=== PATIENT | female | born 1960 | race African-American/Black ===

== ENCOUNTER 2018-06-06 21:39 | Emergency (ER) | payer BC ==
[~2018-06-06] VITALS: Ht 167.6 cm; Wt 90.0 kg
[2018-06-06] MEDS ORDERED: ASPI-1159 PO (23:06)
[2018-06-06] MEDS ORDERED: CLON0.1T PO (23:06)
[2018-06-06] MEDS ORDERED: CARV25TA47 MT (23:06)
[2018-06-06] MEDS ORDERED: AMLO5TAB88 PO (23:06)
[2018-06-06] MEDS ORDERED: ATOR-2 PO (23:06)
[2018-06-06] MEDS ORDERED: INSU100I28 SQ (23:06)
[2018-06-06] MEDS ORDERED: CITA10SO PO (23:06)
[2018-06-06] MEDS ORDERED: HYDR100T26 MT (23:06)
[2018-06-06] MEDS ORDERED: SODIUM CHLORIDE 0.9% 1,000 ML IV ONE (23:13)
[2018-06-06 23:54] LABS: BASOPHILS % 0.4 % (0.0-2.0); EOSINOPHILS % 0.9 % (0.0-5.0); HEMATOCRIT. 38.2 % (36.0-48.0); HEMOGLOBIN. 12.7 g/dL (12.0-16.0); MEAN CORPUSCULAR HEMOGLOBIN 25.7 pg (28.0-32.0); MEAN CORPUSCULAR VOLUME 77.4 fL (81.0-99.0); MEAN PLATELET VOLUME 9.5 fl (7.4-10.4); NEUTROPHILS % 43.7 % (40.0-76.0); PLATELET 167 x1000/uL (130-400); RED BLOOD CELL COUNT 4.93 mill/uL (4.2-5.4)
[2018-06-07 00:14] LABS: CHLORIDE 105 mEq/L (98-107)
[2018-06-07 01:31] LABS: CLARITY URINE CLEAR (CLEAR); COLOR URINE YELLOW (YELLOW); KETONES URINE NEGATIVE (NEGATIVE); LEUKOCYTE ESTERASE URINE NEGATIVE (NEGATIVE); NITRITE URINE NEGATIVE (NEGATIVE); OCCULT BLOOD URINE NEGATIVE (NEGATIVE); PH URINE 7.5 (4.5-8.0); PROTEIN URINE 2+ (NEGATIVE); SPECIFIC GRAVITY URINE 1.013 (1.005-1.030); UROBILINOGEN URINE 0.2 E.U./dL (0.2-1.0)
[2018-06-07] MEDS ORDERED: CLONIDINE 0.2MG TABLET PO ONE (03:45)
[2018-06-07 05:08] VITALS: BP 167/77
== END 2018-06-07 05:10 | disposition home or self-care (01) ==
LOC: ER 21:54 → EDBD 21:54 → ER 06-07 05:10
DX: E86.0 Dehydration (principal); I10 Essential (primary) hypertension; E11.9 Type 2 diabetes mellitus without complications; E78.00 Pure hypercholesterolemia, unspecified; Z86.73 Personal history of transient ischemic attack (TIA), and cerebral infarction without residual deficits; Z79.84 Long term (current) use of oral hypoglycemic drugs; Z79.4 Long term (current) use of insulin; Z79.899 Other long term (current) drug therapy
CPT/HCPCS: 36415; 70450; 71045; 80053; 81003; 83605; 84484; 85025; 93005; 96360; 96361; 99285; J7030

== ENCOUNTER 2018-06-07 16:05 | Inpatient (IN) | payer BC ==
[~2018-06-07] VITALS: Ht 172.7 cm; Wt 77.6 kg
[~2018-06-07 16:05] MED LIST: AMLO5TAB88 PO; ASPI-1159 PO; ATOR-2 PO; CARV25TA47 MT; CITA10SO PO; CLON0.1T PO; HYDR100T26 MT; INSU100I28 SQ
[2018-06-07 17:23] LABS: BASOPHILS % 0.4 % (0.0-2.0); EOSINOPHILS % 0.5 % (0.0-5.0); HEMATOCRIT. 40.3 % (36.0-48.0); HEMOGLOBIN. 13.6 g/dL (12.0-16.0); LYMPHOCYTES % 30.2 % (20.0-50.0); MEAN PLATELET VOLUME 9.4 fl (7.4-10.4); MONOCYTES % 6.2 % (2.0-8.0); NEUTROPHILS % 62.7 % (40.0-76.0); PLATELET 179 x1000/uL (130-400); RED BLOOD CELL COUNT 5.23 mill/uL (4.2-5.4); RED CELL DISTRIBUTION WIDTH 15.3 % (11.6-14.6)
[2018-06-07 17:29] LABS: INR 1.2; PROTHROMBIN TIME 11.9 sec (9.1-11.1)
[2018-06-07 17:31] LABS: CHLORIDE 106 mEq/L (98-107)
[2018-06-07] MEDS ORDERED: HYDRALAZINE 20MG/ML VIAL IV ONE (19:15)
[2018-06-07] MEDS ORDERED: LEVOFLOXACIN 500MG PREMIX 100 ML IV SCH (21:00)
[2018-06-07] MEDS ORDERED: DEXTROSE 50% WATER 50ML SYRINGE IV PRN (21:00)
[2018-06-07] MEDS ORDERED: GUAIFENESIN 200MG/10ML SUGAR FREE UDC PO PRN (21:00)
[2018-06-07] MEDS ORDERED: IPRATROPIUM/ALBUTEROL 0.5-3(2.5)MG/3ML NEB INH PRN (21:00)
[2018-06-07] MEDS ORDERED: ACETAMINOPHEN 325MG TABLET PO PRN (21:00)
[2018-06-07] MEDS ORDERED: NITROGLYCERIN 0.4MG TABLET SL SL PRN (21:00)
[2018-06-07] MEDS ORDERED: ONDANSETRON HCL 4MG/2ML INJ IV PRN (21:00)
[2018-06-07] MEDS ORDERED: MAGNESIUM/ALUMINUM HYDROXIDE/SIMETHICONE 30ML UDC PO PRN (21:00)
[2018-06-07] MEDS ORDERED: KETOROLAC 15MG/ML VIAL IV PRN (21:00)
[2018-06-07 21:09] LABS: T4 FREE 1.33 ng/dL (0.76-1.46)
[2018-06-08 00:23] LABS: CREATINE KINASE 93 IU/L (26-192)
[2018-06-08 00:25] LABS: CREATINE KINASE MB FRACTION 1.2 ng/mL (0.5-3.6)
[2018-06-08 00:30] VITALS: BP 187/87
[2018-06-08] MEDS: CLONIDINE 0.1MG TABLET PO PRN ×2 (01:08→09:08)
[2018-06-08] MEDS ORDERED: NA PHOS,M-B/NA PHOS,DI-BA ENEMA 118ML PR PRN (01:25)
[2018-06-08] MEDS ORDERED: ONDANSETRON 4MG ODT PO PRN (01:45)
[2018-06-08] MEDS ORDERED: LEVOFLOXACIN 500MG PREMIX 100 ML IV SCH (02:00)
[2018-06-08] MEDS ORDERED: CEFTRIAXONE 1 G PREMIX 50 ML IV SCH (03:00)
[2018-06-08] MEDS ORDERED: CLONIDINE HCL 0.3MG/24HR PATCH TD SCH (03:00)
[2018-06-08 04:00] VITALS: BP 152/99
[2018-06-08] MEDS: HYDRALAZINE HCL 50MG TABLET PO SCH ×3 (05:14→21:07)
[2018-06-08] MEDS: INSULIN LISPRO 100 UNITS/ML SUBCUT SCH ×4 (07:12→21:05)
[2018-06-08] MEDS: BLOOD SUGAR DIAGNOSTIC STRIP TEST SCH ×4 (07:40→21:10)
[2018-06-08 08:00] VITALS: BP 166/96
[2018-06-08 08:49] LABS: CREATINE KINASE 95 IU/L (26-192)
[2018-06-08 08:54] LABS: CREATINE KINASE MB FRACTION 1.2 ng/mL (0.5-3.6)
[2018-06-08] MEDS ORDERED: FAMOTIDINE 20MG TABLET PO SCH (09:00)
[2018-06-08] MEDS: NITROGLYCERIN 0.4MG/HR PATCH TOP SCH (09:00)
[2018-06-08] MEDS: ASPIRIN 325MG EC TABLET PO SCH (09:08)
[2018-06-08] MEDS: FAMOTIDINE 20MG TABLET PO SCH (09:08)
[2018-06-08] MEDS: METOPROLOL TARTRATE 25MG TABLET PO SCH ×2 (09:09→21:06)
[2018-06-08] MEDS: LISINOPRIL 20MG TABLET PO SCH ×2 (09:09→21:07)
[2018-06-08] MEDS: ENOXAPARIN 40MG/0.4ML SYR SUBCUT SCH (09:09)
[2018-06-08] MEDS: AMLODIPINE 10MG TABLET PO SCH (09:09)
[2018-06-08 12:00] VITALS: BP 167/95
[2018-06-08 16:00] VITALS: BP 146/90
[2018-06-08 20:00] VITALS: BP 129/82
[2018-06-08] MEDS: ATORVASTATIN CALCIUM 40MG TABLET PO SCH (21:06)
[2018-06-08] MEDS ORDERED: INSULIN GLARGINE UD 100 UNITS/ML SYR SUBCUT SCH ×3 (22:00→23:00)
[2018-06-09] VITALS: BP 121/83
[2018-06-09] MEDS: LEVOFLOXACIN 250MG PREMIX 50 ML IV SCH (02:10)
[2018-06-09] MEDS: CEFTRIAXONE 1 G PREMIX 50 ML IV SCH (02:37)
[2018-06-09 04:00] VITALS: BP 147/100
[2018-06-09] MEDS: HYDRALAZINE HCL 50MG TABLET PO SCH ×3 (06:08→23:09)
[2018-06-09] MEDS: BLOOD SUGAR DIAGNOSTIC STRIP TEST SCH ×4 (06:44→21:00)
[2018-06-09 08:00] VITALS: BP 184/85
[2018-06-09] MEDS: INSULIN LISPRO 100 UNITS/ML SUBCUT SCH ×4 (08:38→21:00)
[2018-06-09] MEDS: ENOXAPARIN 40MG/0.4ML SYR SUBCUT SCH (08:40)
[2018-06-09] MEDS: METOPROLOL TARTRATE 25MG TABLET PO SCH ×2 (08:41→23:10)
[2018-06-09] MEDS: FAMOTIDINE 20MG TABLET PO SCH (08:41)
[2018-06-09] MEDS: AMLODIPINE 10MG TABLET PO SCH (08:41)
[2018-06-09] MEDS: ASPIRIN 325MG EC TABLET PO SCH (08:41)
[2018-06-09] MEDS: CLONIDINE 0.1MG TABLET PO PRN (08:42)
[2018-06-09] MEDS: LISINOPRIL 20MG TABLET PO SCH ×2 (08:42→23:10)
[2018-06-09] MEDS: NITROGLYCERIN 0.4MG/HR PATCH TOP SCH (08:51)
[2018-06-09] MEDS: DOCUSATE SODIUM 100MG CAPSULE PO PRN (13:02)
[2018-06-09 16:00] VITALS: BP 129/73
[2018-06-09 20:00] VITALS: BP 158/82
[2018-06-09] MEDS ORDERED: INSULIN GLARGINE UD 100 UNITS/ML SYR SUBCUT SCH (22:00)
[2018-06-09] MEDS: ATORVASTATIN CALCIUM 40MG TABLET PO SCH (23:09)
[2018-06-10] VITALS: BP 161/87
[2018-06-10] MEDS: LEVOFLOXACIN 250MG PREMIX 50 ML IV SCH (05:56)
[2018-06-10] MEDS: BLOOD SUGAR DIAGNOSTIC STRIP TEST SCH ×2 (07:40→12:40)
[2018-06-10 08:00] VITALS: BP 156/84
[2018-06-10] MEDS: HYDRALAZINE HCL 50MG TABLET PO SCH (08:06)
[2018-06-10] MEDS: CEFTRIAXONE 1 G PREMIX 50 ML IV SCH (08:07)
[2018-06-10] MEDS: INSULIN LISPRO 100 UNITS/ML SUBCUT SCH (08:10)
[2018-06-10] MEDS: AMLODIPINE 10MG TABLET PO SCH (09:57)
[2018-06-10] MEDS: DOCUSATE SODIUM 100MG CAPSULE PO PRN (09:57)
[2018-06-10] MEDS: ASPIRIN 325MG EC TABLET PO SCH (09:57)
[2018-06-10] MEDS: METOPROLOL TARTRATE 25MG TABLET PO SCH (09:58)
[2018-06-10] MEDS: FAMOTIDINE 20MG TABLET PO SCH (09:58)
[2018-06-10] MEDS: ENOXAPARIN 40MG/0.4ML SYR SUBCUT SCH (10:12)
[2018-06-10] MEDS: LISINOPRIL 20MG TABLET PO SCH (10:33)
[2018-06-10] MEDS: NITROGLYCERIN 0.4MG/HR PATCH TOP SCH (10:59)
[2018-06-10 11:54] VITALS: BP 145/89
[2018-06-10 12:00] VITALS: BP 145/89
[2018-06-16] MEDS ORDERED: CLONIDINE HCL 0.3MG/24HR PATCH TD SCH (09:00)
== END 2018-06-10 14:46 | disposition home health service (06) | DRG 91 ==
LOC: ER 16:05 → 7WST 20:40 → ENRESERV 22:58
PROVIDERS: ADMIT Internal Medicine; ATTEND Internal Medicine
DX: G92 Toxic encephalopathy (principal); N17.0 Acute kidney failure with tubular necrosis; E11.65 Type 2 diabetes mellitus with hyperglycemia; E78.00 Pure hypercholesterolemia, unspecified; I16.0 Hypertensive urgency; I10 Essential (primary) hypertension; Z79.899 Other long term (current) drug therapy; Z79.4 Long term (current) use of insulin; Z86.73 Personal history of transient ischemic attack (TIA), and cerebral infarction without residual deficits; Z79.82 Long term (current) use of aspirin
CPT/HCPCS: 36415; 70551; 71045; 80053; 80061; 82550; 82553; 82962; 83036; 84439; 84443; 84484; 85025; 85610; 87086; 93005; 93970; 96374; 97162; 99285; J0360; J0696; J1650; J1815; J1956; J7030